=== PATIENT | female | born 1995 | race Two or more races ===

== ENCOUNTER 2023-08-05 08:46 | Emergency (ER) | payer SELFPAY ==
[~2023-08-05] VITALS: Ht 167.6 cm; Wt 105.4 kg
[2023-08-05 10:36] VITALS: BP 103/73; PULSE 88; RESP 16; TEMP 97.8; O2SAT 99
[2023-08-05 11:07] LABS: Chloride 105 mmol/L (98-107); Potassium 4.6 mmol/L (3.5-5.1); Sodium 138 mmol/L (136-145)
[2023-08-05 11:08] LABS: Anion Gap 7 (5-15); Calcium 9.6 mg/dL (8.5-10.1); Carbon Dioxide 26 mmol/L (20-30)
[2023-08-05 11:10] LABS: Urine Bacteria NONE SEEN /hpf (None Seen); Urine Blood 3+ /uL (Negative); Urine Clarity HAZY (Clear); Urine Color Red (Yellow); Urine Mucus FEW (None Seen); Urine Protein, UAD 1+ (Negative); Urine Specific Gravity 1.024 (1.001-1.035); Urine WBC 26 /hpf (0 - 5)
[2023-08-05 11:13] LABS: BUN/Creatinine Ratio 12.3 (10.0-20.0); Blood Urea Nitrogen 9 mg/dL (9-23); Glucose 100 mg/dL (74-106)
[2023-08-05 11:51] LABS: Basophils # (auto) 0 10 ^3/uL (0-0.2); Eosinophils # (auto) 0.3 10 ^3/uL (0-0.8); Lymphocytes # (auto) 2.5 10 ^3/uL (0.4-5.4); Mean Corpuscular Hemoglobin 22.8 pg (28.0-32.0)
[2023-08-05 11:52] LABS: Basophils % (auto) 0.4 % (0.0-2.0); Eosinophils % (auto) 2.5 % (0.0-7.0); Hematocrit 39.5 % (36.0-46.0); Hemoglobin 12.5 g/dL (12.2-16.2); Lymphocytes % (auto) 22.5 % (10.0-50.0); Mean Corpuscular Hgb Conc. 31.6 g/dL (32.0-36.0); Mean Corpuscular Volume 71.9 fL (80.0-100.0); Monocytes # (auto) 0.7 10 ^3/uL (0-1.3); Monocytes % (auto) 6.4 % (0.0-12.0); Neutrophils # (auto) 7.5 10 ^3/uL (1.6-8.6); Neutrophils % (auto) 68.2 % (37.0-80.0); Red Blood Cells 5.49 10^6/uL (4.0-5.20); Red Cell Distribution Width 16.3 % (11.8-14.3)
[2023-08-05] MEDS ORDERED: BACDST PO (12:19)
[2023-08-05] MEDS ORDERED: NAPR-746 PO (12:19)
== END 2023-08-05 12:33 | disposition home or self-care (01) ==
LOC: ER 08:46
DX: N85.2 Hypertrophy of uterus (principal); R10.2 Pelvic and perineal pain; N94.6 Dysmenorrhea, unspecified; N39.0 Urinary tract infection, site not specified; Z98.890 Other specified postprocedural states; Z79.899 Other long term (current) drug therapy
CPT/HCPCS: 36415; 76856; 80048; 81001; 84702; 85025